=== PATIENT | female | born 1975 | race Caucasian/White ===

== ENCOUNTER 2018-09-22 13:26 | Outpatient (CLI) | payer OTHER ==
[~2018-09-22] VITALS: Ht 172.7 cm; Wt 97.5 kg
[2018-09-22 15:52] VITALS: BP 133/81
[2018-09-22] MEDS ORDERED: MULTIVITAMINS1 EAC2 ORAL (16:04)
[2018-09-22] MEDS ORDERED: OMEPRAZOLE40 M1 ORAL (16:04)
[2018-09-22] MEDS ORDERED: VITAMIN D400 INTLU ORAL (16:04)
[2018-09-22] MEDS ORDERED: CLARITIN10 M2 ORAL (16:04)
[2018-09-22] MEDS ORDERED: FLONASE ALLERG9.9 ML NS (16:04)
[2018-09-22] MEDS ORDERED: BUTRANS1 EAC1 TD (16:04)
[2018-09-22] MEDS ORDERED: NORCO 5-325 TA1 EACH ORAL (16:04)
[2018-09-22] MEDS ORDERED: FERROUS FUMARAT89 MG PO (16:04)
[2018-09-22] MEDS ORDERED: VENTOLIN HFA18 GM INH (16:04)
[2018-09-22] MEDS ORDERED: HYDROXYZINE HCL50 M1 PO (16:04)
--- NOTE | 2018-09-23 15:39 | GI Initial Consult Note ---
History of Present Illness General Date patient seen: Sep 22, 2018 Time patient seen: 15:33 Referring physician: HMO Reason for Consultation: PRE-OP ENDOSCOPY Present Illness HPI 43 year old female patient presents today for Pre-OP endoscopy for gastric bypass revision. States her care is already being managed by another Therapy Technician. She denies any GI symptoms; denies abdominal pain, N/V/D or constipation. No signs of abuse or neglect. Patient is not fall risk. Home Meds Reported Medications Vitamin D (Vitamin D3) 400 Unit Tablet, 5000 UNITS ORAL DAILY, TAB 09/22/18 Omeprazole (OMEPRAZOLE) 40 Mg Capsule.dr, 40 MG ORAL DAILY, CAP 09/22/18 Hydrocodone Bit/Acetaminophen 5-325* (NORCO 5-325*) 1 Each Tablet, 1 TAB ORAL PRN PRN for For Pain, TAB 0 Refills 09/22/18 Multivitamins* (MULTIVITAMINS*) 1 Each Tablet, 1 TAB ORAL DAILY, TAB 0 Refills 09/22/18 Hydroxyzine Hcl (HYDROXYZINE HCL) 50 Mg Tablet, 50 MG PO DAILY, TAB 09/22/18 Fluticasone Propionate (Flonase Allergy Relief) 9.9 Ml [place].susp, 9.9 ML NS 09/22/18 Ferrous Fumarate (FERROUS FUMARATE) 89 Mg Tablet, 180 MG PO TID, TAB 09/22/18 Loratadine (CLARITIN) 10 Mg Capsule, 10 MG ORAL DAILY, CAP 09/22/18 Buprenorphine (BUTRANS) 1 Each Patch.tdwk, 1 EACH TD QWEEK, PATCH 09/22/18 Albuterol Sulfate (VENTOLIN HFA) 18 Gm Hfa.aer.ad, 2 PUFFS INH EVERY 6 HOURS, # 18 GM 0 Refills 09/22/18 Med list reviewed/reconciled: Yes Allergies: Coded Allergies: No Known Allergies (Unverified , 09/22/18) Patient History History Provided By: Patient, Medical Record PMH Narrative DM Vit D deficiency Iron def anemia GERD Menorrhagia Morbid Obesity Primary fibromyalgia Syndrome Family History Narrative Father Heart Disease Mother - Malignant tumor of the breast. Social History: Denies: smoking, alcohol use, drug use, other Review of Systems All Other Systems: negative except mentioned in HPI Physical Exam Vital Signs Date Time Temp Pulse Resp B/P (MAP) Pulse Ox O2 Delivery O2 Flow Rate FiO2 09/22/18 15:52 98.5 57 133/81 96 Sp02 EP Interpretation: reviewed, normal General Appearance: well appearing, no apparent distress, alert Head: normocephalic EENT: PERRL/EOMI, normal ENT inspection Neck: supple Respiratory: normal breath sounds, no respiratory distress Cardiovascular: normal rate Gastrointestinal: normal inspection, non tender, soft, normal bowel sounds, non -distended Rectal: deferred Genitourinary: no CVA tenderness Musculoskeletal: normal inspection, back normal Neurologic: normal inspection, alert, oriented x3, responsive Psychiatric: normal inspection, judgement/insight normal, memory normal Skin: normal inspection, normal color, no rash, warm/dry, palpation normal, well hydrated Lymphatic: normal inspection, no adenopathy GI: Plan Problems: (1) Complications of gastric bypass surgery (2) Encounter for diagnostic endoscopy (3) GERD (gastroesophageal reflux disease) (4) ISHMAEL (iron deficiency anemia) (5) Diabetes mellitus (6) Morbid obesity Plan EGD to be scheduled pending PA, will contact patient. - NPO @ [facility] day prior procedure explained. will follow with additional recs post procedure Seen with Dr. De Jesus. Thank you for this patient referral. The patient was seen and examined at bedside and all new and available data was reviewed in the patients chart. I agree with the above findings, impression and plan. (Patient seen earlier today. Signature stamp does not reflect patient encounter time.). - MD Leny [facility] Sep 23, 2018 15:39
== END 2018-09-22 13:56 | disposition home or self-care (01) ==
LOC: PAN 13:26
DX: Z01.818 Encounter for other preprocedural examination (principal); K95.89 Other complications of other bariatric procedure; K21.9 Gastro-esophageal reflux disease without esophagitis; D50.9 Iron deficiency anemia, unspecified; E11.9 Type 2 diabetes mellitus without complications; E66.01 Morbid (severe) obesity due to excess calories
CPT/HCPCS: 99202